=== PATIENT | male | born 1965 | race Asian ===

== ENCOUNTER 2016-11-05 20:43 | Inpatient (IN) | payer MEDICAID ==
[~2016-11-05] VITALS: Ht 177.8 cm; Wt 73.9 kg
--- NOTE | 2016-11-05 20:49 | NUR ---
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 AOx4, afebrile w/ resp even & unlabored, hypertensive, NSR, denies any ACKERMAN, no dizziness, no blurred vision, no sob w/ nad noted. pt on continuous cardiac monitoring. Pending further eval fr [facility].
--- NOTE | 2016-11-05 20:51 | NUR ---
Dr. De Oliveira at bedside for eval.
--- NOTE | 2016-11-05 20:57 | NUR ---
RESIDENT INTERN AT BEDSIDE FOR BLOOD DRAW.
--- NOTE | 2016-11-05 21:04 | NUR ---
CXR AT BEDSIDE.
[2016-11-05 21:05] LABS: BASOPHILS % (AUTO) 0.7 % (0.0-2.0); EOSINOPHILS # (AUTO) 0.1 /CMM (0.0-0.7); EOSINOPHILS % (AUTO) 2.3 % (0.0-6.0); HEMATOCRIT 40 % (39-51); HEMOGLOBIN 13.4 g/dL (13.5-17.5); LYMPHOCYTES # (AUTO) 1.5 /CMM (0.8-4.8); LYMPHOCYTES % (AUTO) 23.3 % (20.0-44.0); MEAN CORPUSCULAR HEMOGLOBIN 28 PG (26.0-33.0); MEAN CORPUSCULAR HGB CONC 33 g/dl (31.0-36.0); MEAN CORPUSCULAR VOLUME 83 fL (80-96); MONOCYTES # (AUTO) 0.4 /CMM (0.1-1.30); MONOCYTES % (AUTO) 6.1 % (2.0-12.0); NEUTROPHILS # (AUTO) 4.2 /CMM (1.8-8.9); NEUTROPHILS % (AUTO) 67.6 % (43.0-81.0); PLATELET COUNT (AUTO) 198 /CMM (150-450); RDW COEFFICIENT OF VARIATION 12.5 (11.5-15.0); RED BLOOD CELL COUNT(AUTO) 4.83 MIL/uL (4.5-6.0); WHITE BLOOD COUNT (AUTO) 6.2 K/uL (4.3-11.0)
[2016-11-05 21:15] LABS: CALCIUM, SERUM 8.9 mg/dL (8.5-10.1); CARBON DIOXIDE 29 mmol/L (21-32); CHLORIDE 106 mmol/L (98-107); CREATININE 1.2 mg/dL (0.6-1.3); GLUCOSE 163 mg/dL (74-106); POTASSIUM 3.6 mmol/L (3.5-5.1); SODIUM SERUM 143 mmol/L (136-145); UREA NITROGEN, BLOOD 19 mg/dL (7-18)
[2016-11-05 21:17] LABS: INR 0.95 (0.87-1.13); PROTHROMBIN TIME 9.9 SECS (9.5-12.7)
--- NOTE | 2016-11-05 21:21 | NUR ---
CALLED NURSING SUP. FOR TELE BED
--- NOTE | 2016-11-05 21:21 | NUR ---
[facility], ALICIA SHAIKH CHEMICAL ENGINEERING PROFESSOR
[2016-11-05 21:24] LABS: TROPONIN I < 0.017 ng/mL (0.00-0.056)
[2016-11-05] MEDS ORDERED: ASPIRIN 81 MG TAB.CHEW ONE (21:28)
--- NOTE | 2016-11-05 21:28 | NUR ---
pt medicated as ordered, resting comfortably in bed w/ resp even & unlabored, nad noted. 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
[2016-11-05] MEDS ORDERED: NITROGLYCERIN PACKET 1 GM PACKET ONE (21:29)
[2016-11-05] MEDS ORDERED: ASPIRIN 81 MG TAB.CHEW PO ONE (21:30)
[2016-11-05] MEDS ORDERED: NITROGLYCERIN PACKET 1 GM PACKET TOP ONE (21:30)
--- NOTE | 2016-11-05 21:39 | NUR ---
Report given to JACKIE Hillman for pt NAIN.
[2016-11-05] MEDS ORDERED: ASPI-605 PO (22:17)
[2016-11-05] MEDS ORDERED: AMLO5TAB2 PO (22:17)
[2016-11-05] MEDS ORDERED: METF500T4 PO (22:17)
--- NOTE | 2016-11-05 22:37 | NUR ---
Dr. Ocampo at bedside for eval.
--- NOTE | 2016-11-05 22:55 | NUR ---
pt resting comfortably in bed w/ resp even & unlabored, nad noted. On continuous cardiac monitoring. Awaiting admission to tele unit.
[2016-11-05 23:00] VITALS: BP 128/88
--- NOTE | 2016-11-05 23:00 | NUR ---
CLINICAL INFORMATICS DIRECTOR INITIAL NOTE PT ADMITTED TO CORRECT ROOM IN NO ACUTE DISTRESS. ON RA WITH 02 SATURATION WNL. IV LINE IN LAC 20G. NO GT. CAN AMBULATE UNDER OWN POWER TO BATHROOM WHEN NEEDED. ALL VITALS WNL. WILL CONTINUE ADMISSION PROCESS AND MONITOR PATIENT FOR ANY CHANGES. Addendum: 11/06/16 at 0107 by MOIRA OLIVARES RN TIME IS 2310
--- NOTE | 2016-11-05 23:04 | NUR ---
PT TRANSFERRED VIA GURNEY FOLLOWING ALS PROTOCOL TO TELE RM 114-1
[2016-11-05] MEDS ORDERED: MORPHINE SULFATE INJ 2 MG/ML DISP.SYRIN IV PRN (23:30)
[2016-11-05] MEDS ORDERED: Z GUARD REMEDY 2 OZ OINT TP PRN (23:30)
[2016-11-05] MEDS ORDERED: NITROGLYCERIN 0.4 MG/TAB BOTTLE SL PRN (23:30)
[2016-11-05] MEDS ORDERED: ACETAMINOPHEN 325 MG TABLET PO PRN (23:30)
[2016-11-05] MEDS ORDERED: MAGNESIUM HYDROXIDE 30 ML UDC PO PRN (23:30)
[2016-11-05] MEDS ORDERED: HYDROCODONE/APAP 5/325MG 1 EACH TABLET PO PRN (23:30)
[2016-11-05] MEDS ORDERED: ONDANSETRON HCL/PF 4 MG/2 ML VIAL IVP PRN (23:30)
[2016-11-05] MEDS ORDERED: MAG HYDROX/AL HYDROX/SIMETH 30 ML UDC PO PRN (23:30)
[2016-11-06] VITALS (11 sets, daily range): BP systolic 119–139; BP diastolic 84–95
--- NOTE | 2016-11-06 01:07 | NUR ---
PT IS IN BED COMFORTABLE SLEEPING. WILL MONITOR FOR CHEST TIGHTNESS/PAIN
[2016-11-06] MEDS ORDERED: ACETAMINOPHEN 325 MG TABLET ONE (03:59)
[2016-11-06] MEDS: IV 1/2NS 1000 ML 1,000 ML IV PRN ×2 (04:42→18:39)
--- NOTE | 2016-11-06 07:02 | NUR ---
ASSISTANT FOOD SERVICE DIRECTOR CLOSING NOTE PT IS IN NO ACUTE DISTRESS AT END OF SHIFT. ON TELE WITH SR 74. ON RA WITH ADEQUATE 02 SATURATION. IV ON LAC 20G THAT IS CLEAN DRY AND PATENT RUNNING FLUIDS CURRENTLY. GAVE TYLENOL AT 0409. TOLERATED ALL CARE WELL. WILL ENDORSE CARE TO AM RN.
--- NOTE | 2016-11-06 07:20 | NUR ---
JACKIE INITIAL NOTE REPORT RECEIVED FROM MOIRA PM SHIFT FOR NAIN. PT A/O X4 PT ON RA. PAIN 010. TELE SR 89. IV LAC #20G 12 NS @ 75ML/HR. ALL SAFETY MEASURES IN PLACE. WILL CONTINUE TO MONITOR.
[2016-11-06 07:35] LABS: BASOPHILS % (AUTO) 0.5 % (0.0-2.0); EOSINOPHILS # (AUTO) 0.1 /CMM (0.0-0.7); EOSINOPHILS % (AUTO) 1.3 % (0.0-6.0); HEMATOCRIT 37 % (39-51); HEMOGLOBIN 12.6 g/dL (13.5-17.5); LYMPHOCYTES # (AUTO) 1.1 /CMM (0.8-4.8); LYMPHOCYTES % (AUTO) 13.6 % (20.0-44.0); MEAN CORPUSCULAR HEMOGLOBIN 28 PG (26.0-33.0); MEAN CORPUSCULAR HGB CONC 34 g/dl (31.0-36.0); MEAN CORPUSCULAR VOLUME 83 fL (80-96); MONOCYTES # (AUTO) 0.6 /CMM (0.1-1.30); MONOCYTES % (AUTO) 7.6 % (2.0-12.0); NEUTROPHILS # (AUTO) 6.5 /CMM (1.8-8.9); PLATELET COUNT (AUTO) 188 /CMM (150-450); RDW COEFFICIENT OF VARIATION 13.3 (11.5-15.0); WHITE BLOOD COUNT (AUTO) 8.4 K/uL (4.3-11.0)
[2016-11-06 07:53] LABS: ALANINE AMINOTRANSFERASE 23 U/L (12-78); ALBUMIN 3.5 g/dL (3.4-5.0); ALKALINE PHOSPHATASE 51 U/L (46-116); ASPARTATE AMINOTRANSFERASE 17 U/L (15-37); BILIRUBIN,TOTAL 0.6 mg/dL (0.2-1.0); CALCIUM, SERUM 8.3 mg/dL (8.5-10.1); CARBON DIOXIDE 31 mmol/L (21-32); CHLORIDE 105 mmol/L (98-107); GLUCOSE 164 mg/dL (74-106); MAGNESIUM 1.9 mg/dL (1.8-2.4); PHOSPHORUS 3.6 mg/dL (2.5-4.9); POTASSIUM 3.6 mmol/L (3.5-5.1); SODIUM SERUM 141 mmol/L (136-145); TOTAL PROTEIN, SERUM 6.8 g/dL (6.4-8.2); UREA NITROGEN, BLOOD 15 mg/dL (7-18)
[2016-11-06 08:00] LABS: TROPONIN I < 0.017 ng/mL (0.00-0.056)
[2016-11-06] MEDS: METFORMIN 500 MG TABLET PO SCH ×3 (08:31→16:41)
[2016-11-06] MEDS: ASPIRIN EC 81 MG TABLET.DR PO SCH ×2 (08:31→10:37)
[2016-11-06 08:35] LABS: CHOLESTEROL 169 mg/dL (<200); HDL CHOLESTEROL 63 mg/dL (40-60); LDL 65 mg/dL (0-99); THYROID STIMULATING HORMONE 1.866 uIU/mL (0.358-3.74); TRIGLYCERIDES 156 mg/dL (30-150)
[2016-11-06] MEDS ORDERED: AMLODIPINE BESYLATE 5 MG TABLET PO SCH (09:00)
--- NOTE | 2016-11-06 10:38 | NUR ---
RN NOTE DIS NOT ADMINISTER ASPIRIN AND METFORMIN PT ALREADY HAD DOSE @ 0800.
[2016-11-06] MEDS: ATORVASTATIN 40 MG TABLET PO SCH (11:33)
[2016-11-06] MEDS: LOSARTAN POTASSIUM 50 MG TABLET PO SCH (11:34)
[2016-11-06] MEDS: CARVEDILOL 3.125 MG TABLET PO SCH ×2 (11:34→21:16)
[2016-11-06 12:49] LABS: IRON, SERUM 59 ug/dl (50-175); TOTAL IRON BINDING CAPACITY 213 ug/dl (250-450)
[2016-11-06 12:50] LABS: FERRITIN 250 ng/mL (8-388)
--- NOTE | 2016-11-06 19:27 | NUR ---
RN CLOSING NOTE REPORT GIVEN TO PM NURSE FOR NAIN. PT SITTING @ BEDSIDE WITH . ALL ORDERS CARRIED OUT. ALL SAFETY MEASURES IN PLACE. EDUCATED PT ON NPO STATUS AFTER MIDNIGHT. PT HAD NO CHEST PAIN THROUGH OUT SHIFT. STABLE THROUGH OUT SHIFT.
--- NOTE | 2016-11-06 19:30 | NUR ---
RN NOTE; RECEIVED PT UP ON THE CHAIR W/ FAMILY AT THE BED SIDE. BREATHING EVENLY. NO SOB. NAD. NO C/O CHEST PAIN. HEART MONITOR IN PLACE READING SR. NEEDS ATTENDED. CALL LIGHT WITHIN REACH. WILL CONT TO MONITOR,
[2016-11-07] VITALS (8 sets, daily range): BP systolic 113–148; BP diastolic 79–96
--- NOTE | 2016-11-07 06:36 | NUR ---
RN NOTE; PT IN BED AWAKE AND RESPONSIVE, BREATHING EVENLY. NO SOB. NAD. NO C/O CHEST PAIN . SR ON TELE MONITOR. NO ACUTE EVENT OVER NIGHT. NPO FOR LEXISCAN. NEEDS ATTENDED .CALL LIGHT WITHIN REACH. WILL CONT TO MONITOR AND WILL ENDORSE TO AM SHIFT FOR NAIN.
[2016-11-07] MEDS ORDERED: REGADENOSON 0.4 MG/5 ML DISP.SYRIN IVP ONE (08:00)
--- NOTE | 2016-11-07 08:00 | NUR ---
SPANISH LECTURER NOTES PATIENT TRANSFERRED TO HAVE LEXISCAN.
--- NOTE | 2016-11-07 09:00 | NUR ---
TURKISH LINE ATTENDANT NOTES PATIENT RETURNED FROM [facility] IN STABLE CONDITION. ALERT ORIENTED X4 , NO SOB OR ACUTE DISTRESS NOTED. AMBULATORY. BED IN LOW LOCKED POSITION CALL LIGHT WITHIN REACH. IV INTACT PATENT WILL CONTINUE TO MONITOR.
[2016-11-07] MEDS: CARVEDILOL 3.125 MG TABLET PO SCH (10:14)
[2016-11-07] MEDS: ATORVASTATIN 40 MG TABLET PO SCH (10:14)
[2016-11-07] MEDS: METFORMIN 500 MG TABLET PO SCH ×2 (10:14→16:49)
[2016-11-07] MEDS: LOSARTAN POTASSIUM 50 MG TABLET PO SCH (10:14)
--- NOTE | 2016-11-07 12:30 | NUR ---
LOCUM TENENS PSYCHIATRIST NOTES PATIENT WAS SEEN AND EVALUATED BY ROSIO TARANGO NP, ORDERS NOTED AND CARRIED OUT.
--- NOTE | 2016-11-07 17:00 | NUR ---
MS RN NOTES PATIENT ALERT, ORIENTED X4 NO SOB OR ACUTE DISTRESS NOTED. IN STABLE CONDITION. MD AWARE OF ALL ABNORMAL LABS. ALL DUE MEDICATIONS ADMINISTERED. ALL BELONGINGS ACCOUNTED FOR. BELONGING LIST SIGNED. PROVIDED PATIENT WITH PRESCRIPTION. DISCHARGE INSTRUCTIONS PROVIDED. VERBALIZES UNDERSTANDING. IV REMOVED WITH MINIMAL BLEEDING NOTED. ID BAND ALSO REMOVED. VS WNL. WITH . SKIN INTACT. DISCHARGED HOME WITH VIA PRIVATE CAR. DISCHARGE PROTOCOL FOLLOWED.
== END 2016-11-07 16:55 | disposition home or self-care (01) | DRG 203 ==
LOC: ER 20:46 → TELE1 22:55
PROVIDERS: ADMIT Nurse Practitioner Acute Care; ATTEND Nurse Practitioner Acute Care
DX: M94.0 Chondrocostal junction syndrome [Tietze] (principal); E11.65 Type 2 diabetes mellitus with hyperglycemia; I10 Essential (primary) hypertension; E78.1 Pure hyperglyceridemia; D64.9 Anemia, unspecified; R79.89 Other specified abnormal findings of blood chemistry
CPT/HCPCS: 36415; 71010-TC; 80048-TC; 80053-TC; 80061-TC; 82728-TC; 83540-TC; 83735-TC; 84100-TC; 84443-TC; 84484-TC; 85025-TC; 85730-TC; 87081-TC; 93307-TC; A4606; A9502; J2785; J3490; Z7610